=== PATIENT | male | born 1985 | race Caucasian/White ===

== ENCOUNTER 2016-06-20 00:22 | Emergency (ER) ==
[2016-06-20 00:27] VITALS: BP 153/115
[2016-06-20] MEDS ORDERED: TORADOL IM ONE (00:37)
[2016-06-20] MEDS ORDERED: NORFLEX IM ONE (00:37)
--- NOTE | 2016-06-20 00:42 | PROVIDER DOCUMENTATION ---
HPI-Male Problem - General Chief Complaint: Groin Pain Stated Complaint: MALE Time Seen by Provider: 06/20/16 00:28 Source: patient Allergies/Adverse Reactions: Patient Allergies Allergy/AdvReac Type Severity Reaction Status Date / Time No Known Allergies Allergy Verified 05/28/16 09:21 - History of Present Illness-Male Nature of Presenting Problem: 31 year old M presents to the ED with a cc of right groin pain with an onset of 2 days ago. PT states that he was weight lifting and pain got worse. Location of Complaint: reports: groin Radiation: reports: none Quality of Pain: reports: aching Severity in ED: reports: mild Onset/Duration: reports: 2 days ago Timing: reports: still present Context/Activities at Onset: reports: none Urinary Symptoms: reports: no symptoms Associated Symptoms: reports: inguinal mass Associated Symptoms: reports: denies symptoms Similar Symptoms Previously?: No Recently seen or treated by another doctor?: No Review of Systems - Adult - REVIEW OF SYSTEMS - ADULT Constitutional: denies: chills, fever Eyes: reports: no symptoms reported Ears, Nose, Mouth & Throat: reports: no symptoms reported Cardiovascular: denies: chest pain, palpitations Respiratory: denies: cough, shortness of breath Gastrointestinal: denies: nausea, vomiting Genitourinary: denies: dysuria, flank pain Musculoskeletal: reports: no symptoms reported Integumentary: reports: no symptoms reported Neurological: reports: no symptoms reported Psychiatric: reports: no symptoms reported Endocrine: reports: no symptoms reported Hematologic/Lymphatic: reports: no symptoms reported Allergic/Immunologic: reports: no symptoms reported All Other Systems: Reviewed and Negative Past History - Adult - PAST MEDICAL HISTORY-ADULT Review of Records: reports: Nursing Assessment Review, Medications Reviewed Major Childhood Illnesses: reports: denies history Gastrointestinal: reports: other (hernia) - PRIOR SURGERIES/PROCEDURES Surgical/Procedure History: reports: hernia repair - PRIOR HOSPITALIZATIONS Prior Hospitalizations: reports: none - IMMUNIZATION STATUS Childhood Immunizations: See Nurse Assessment Flu Vaccine: See Nurse Assessment - FAMILY HISTORY Family History: reviewed, not pertinent - SOCIAL HISTORY Substance Use: none/never Alcohol Use Frequency: never Physical Exam-General - PHYSICAL EXAM-ADULT Initial Vital Signs Reviewed: Yes - CONSTITUTIONAL General Appearance: appears well, alert, no apparent distress - RESPIRATORY Respiratory: chest non-tender, lungs clear, normal breath sounds - CARDIOVASCULAR Cardiovascular: normal peripheral pulses, regular rate, rhythm, no edema - GENITOURINARY Male Genitalia: normal genitalia, hernia mass (right inguinal hernia with no complications easily reducable) - MUSCULOSKELETAL Extremity: normal inspection - SKIN Integumentary: normal color, normal turgor, warm/dry - PSYCHIATRIC Psych/Mental Status: normal mood/affect, normal thought content, normal thought process, oriented x 3 Progress - PLAN OF CARE/RESULTS Progress/Plan/Lab Results: plan of care: medications Orders Category Date Time Status Ketorolac [Toradol] Med 06/20/16 00:37 Discontinued 60 mg IM NOW ONE Orphenadrine [Norflex] Med 06/20/16 00:37 Discontinued 60 mg IM NOW ONE Vital Signs - 24 hr 06/20/16 00:25 Temperature 97.7 F Pulse Rate 57 L Respiratory 18 Rate Blood Pressure 153/115 O2 Sat by Pulse 100 Oximetry Pt given results and will be d/c with PD w/ rx to follow up with surgery. Pt verbally understood instructions. PT remained clinically stable throughout the course of the ED stay and will return if symptoms worsen. Departure - Departure Time of Disposition Order: 00:42 DIAGNOSIS: Right inguinal hernia Disposition: HOME 01 Certified Medical Emergency: Emergent Condition: Good Additional Instructions: Follow up with surgery. Return to ED for any new or worsening symptoms. Establish care with a primary physician by calling the physician referral line below. ED Follow Up Instructions: You have been treated by a care provider in the Emergency Department. These instructions are being provided to you so you can have an understanding of how to care for yourself upon discharge. Upon discharge from the Emergency Department, you are responsible for making arrangements for follow-up care by a physician of your choice. Take all prescribed medications as directed. Return to the Emergency Department immediately for any new or worsening symptoms. You may call the Physician Referral phone number at [phone] to obtain a list of Physicians who are taking new patients. Prescriptions: Cyclobenzaprine [Flexeril] 10 mg PO TID PRN #20 tablet PRN Reason: Spasms Ibuprofen [Motrin] 800 mg PO Q8H PRN PRN #30 tablet PRN Reason: Pain Referrals: Zeferino Hoyt MD [STAFF PHYSICIAN] - Attestation - Scribe Verification/Attestation Scribe:: Sharron Gilbert Acting as Scribe for:: Aries Katz Scribe documention review:: This chart was documented by a scribe and accurately reflects the service the provider performed and the decisions made by the provider. Physician Attestation - Physician Attestation I, the provider, attest to the following statement:: Aries Katz Physician documentation Attestation:: This documentation recorded by the scribe accurately reflects the service I personally performed and the decisions made by me.
== END 2016-06-20 00:58 | disposition home or self-care (01) ==
LOC: ED 00:22
DX: K40.90 Unilateral inguinal hernia, without obstruction or gangrene, not specified as recurrent (principal); R10.31 Right lower quadrant pain; R19.09 Other intra-abdominal and pelvic swelling, mass and lump
CPT/HCPCS: 96372; J1885; J2360